=== PATIENT | female | born 1995 | race African-American/Black ===

== ENCOUNTER 2021-07-18 10:45 | Emergency (ER) | payer MEDICAID ==
[~2021-07-18] VITALS: Ht 167.6 cm; Wt 69.0 kg
[2021-07-18] MEDS ORDERED: HYDROCODONE/ACETAMINOPHEN 5/325MG TABLET PO ONE (11:30)
[2021-07-18 12:19] VITALS: BP 129/69
[2021-07-18] MEDS ORDERED: OFLO5DRO4 LEFT EAR (13:15)
== END 2021-07-18 13:48 | disposition home or self-care (01) ==
LOC: ER 10:45
DX: S09.22XA Traumatic rupture of left ear drum, initial encounter (principal); Y04.0XXA Assault by unarmed brawl or fight, initial encounter; Y93.89 Activity, other specified; Y92.89 Other specified places as the place of occurrence of the external cause; Y99.8 Other external cause status
CPT/HCPCS: 81025; 99284